=== PATIENT | male | born 1955 | race Asian ===

== ENCOUNTER 2021-06-19 20:36 | Emergency (ER) | payer OTHER ==
[~2021-06-19] VITALS: Ht 165.1 cm; Wt 72.1 kg
[2021-06-19 21:12] LABS: PLATELET COUNT 314 K/uL (142-355)
[2021-06-19 21:19] LABS: POTASSIUM 3.3 mmol/L (3.6-5.2)
[2021-06-19 22:30] VITALS: BP 128/87; TEMP 98.1
[2021-06-20] MEDS ORDERED: RISPERDAL CONST25 MG IM (08:57)
[2021-06-20] MEDS ORDERED: RISPERDAL12.5 MG IM (08:58)
[2021-06-20] MEDS ORDERED: ELIQUIS5 MG PO (08:59)
[2021-06-20] MEDS ORDERED: ENTRESTO 97-1031 TAB PO (09:00)
[2021-06-20] MEDS ORDERED: TRAMADOL HYDROC50 MG PO (09:03)
[2021-06-20] MEDS ORDERED: FUROSEMIDE40 MG PO (09:04)
[2021-06-20] MEDS ORDERED: KEPPRA750 MG PO (09:07)
[2021-06-20] MEDS ORDERED: OMEPRAZOLE DR20 MG PO (09:08)
[2021-06-20] MEDS ORDERED: BACLOFEN10 MG PO (09:09)
[2021-06-20] MEDS ORDERED: CARV6.25 PO (09:11)
[2021-06-20] MEDS ORDERED: LAMOTRIGINE150 MG PO (09:12)
[2021-06-20] MEDS ORDERED: TRAZODONE HYDRO50 MG PO (09:12)
[2021-06-20] MEDS ORDERED: QUETIAPINE25 MG PO (09:14)
[2021-06-20] MEDS ORDERED: CLOPIDOGREL75 MG PO (09:15)
[2021-06-20] MEDS ORDERED: CLONIDINE0.3 MG PO (09:15)
[2021-06-20] MEDS ORDERED: CLONIDINE HYDR0.1 M2 PO (09:16)
[2021-06-20] MEDS ORDERED: ARTIFICIAL TEARS1 % OPTH (09:18)
[2021-06-20] MEDS ORDERED: ASCORBIC ACD500 MG PO (09:19)
[2021-06-20] MEDS ORDERED: LIDOCAINE PAIN RE4 % EX (09:21)
[2021-06-20] MEDS ORDERED: DICLOFENAC SODIUM1 % TD (09:22)
[2021-06-20] MEDS ORDERED: MAPAP500 MG PO (09:23)
[2021-06-20] MEDS ORDERED: ZINC220 M1 PO (09:24)
== END 2021-06-19 22:30 | disposition still patient (30) ==
LOC: ED 20:36
PROVIDERS: Hospitalist
DX: F25.0 Schizoaffective disorder, bipolar type (principal); F22 Delusional disorders; Z11.52 Encounter for screening for COVID-19; Z04.6 Encounter for general psychiatric examination, requested by authority
CPT/HCPCS: 36415; 80053; 85027; 87635; 93005; 99283; U0003

== ENCOUNTER 2021-12-27 23:29 | Emergency (ER) | payer OTHER ==
[~2021-12-27] VITALS: Ht 165.1 cm; Wt 73.5 kg
[~2021-12-27 23:29] MED LIST: ARTIFICIAL TEARS1 % OPTH; ASCORBIC ACD500 MG PO; BACLOFEN10 MG PO; CARV6.25 PO; CLONIDINE HYDR0.1 M2 PO; CLONIDINE0.3 MG PO; CLOPIDOGREL75 MG PO; DICLOFENAC SODIUM1 % TD; DULO30CA PO; ELIQUIS5 MG PO; ENTRESTO 97-1031 TAB PO; FUROSEMIDE40 MG PO; KEPPRA750 MG PO; LAMOTRIGINE150 MG PO; LIDOCAINE PAIN RE4 % EX; LISI20TA11 PO; MAPAP500 MG PO; OMEPRAZOLE DR20 MG PO; QUET25TA2 PO; QUETIAPINE25 MG PO; RISP50IN IM; RISPERDAL CONST25 MG IM; RISPERDAL12.5 MG IM; TRAMADOL HYDROC50 MG PO; TRAZ50TA36 PO; TRAZODONE HYDRO50 MG PO; ZINC220 M1 PO
[2021-12-28 00:37] LABS: PLATELET COUNT 278 K/uL (142-355)
[2021-12-28 00:40] LABS: POTASSIUM 3.9 mmol/L (3.6-5.2)
[2021-12-28 01:00] VITALS: BP 154/101; TEMP 98.9
[2021-12-28] MEDS ORDERED: QUETIAPINE50 MG PO (04:16)
[2021-12-28] MEDS ORDERED: VITAMIN D5000 UNIT PO (04:20)
[2021-12-28] MEDS ORDERED: RISP50IN IM (04:24)
[2021-12-28] MEDS ORDERED: CLONIDINE0.3 MG PO (04:35)
== END 2021-12-28 01:05 | disposition still patient (30) ==
LOC: ED 23:29
PROVIDERS: Emergency Medicine Emergency Medical Services
DX: R46.89 Other symptoms and signs involving appearance and behavior (principal); F20.89 Other schizophrenia; Z11.52 Encounter for screening for COVID-19; Z04.6 Encounter for general psychiatric examination, requested by authority
CPT/HCPCS: 36415; 80053; 85027; 87635; 93005; 99283; U0003